=== PATIENT | male | born 1960 | race Caucasian/White ===

== ENCOUNTER 2021-08-16 08:45 | Inpatient (IN) | payer OTHER ==
[~2021-08-16] VITALS: Ht 175.3 cm; Wt 132.2 kg
[2021-08-16] MEDS ORDERED: AZITHROMYCIN 500MG/ 250ML 250 ML IV ONE (09:15)
[2021-08-16] MEDS ORDERED: cefTRIAXone 1GM/50ML D5W 50 ML IV ONE (09:15)
[2021-08-16] MEDS ORDERED: AMIODARONE HCL 150 MG in D5W 5% 100 ML IV ONE (09:15)
[2021-08-16] MEDS ORDERED: AMIODARONE 450mg/250ml AE 250 ML IV SCH (09:30)
[2021-08-16 10:03] LABS: Basophils # (auto) 0 10 ^3/uL (0-0.2); Basophils % (auto) 0.2 % (0.0-2.0); Eosinophils # (auto) 0 10 ^3/uL (0-0.8); Hematocrit 36.3 % (41.0-53.0); Hemoglobin 11.8 g/dL (13.5-17.5); Lymphocytes # (auto) 11.7 10 ^3/uL (0.4-5.4); Lymphocytes % (auto) 47.4 % (10.0-50.0); Mean Corpuscular Hemoglobin 27.2 pg (28.0-32.0); Mean Corpuscular Hgb Conc. 32.5 g/dL (32.0-36.0); Mean Corpuscular Volume 83.7 fL (80.0-100.0); Monocytes # (auto) 0.3 10 ^3/uL (0-1.3); Monocytes % (auto) 1.2 % (0.0-12.0); Neutrophils # (auto) 12.6 10 ^3/uL (1.6-8.6); Neutrophils % (auto) 51.2 % (37.0-80.0); Red Blood Cells 4.34 10^6/uL (4.5-5.90); Red Cell Distribution Width 17.7 % (11.8-14.3); White Blood Cell 24.7 10^3/uL (4.4-10.8)
[2021-08-16] MEDS ORDERED: FUROSEMIDE 40 MG/4 ML VIAL IV ONE (10:15)
[2021-08-16 10:20] LABS: Albumin 2.2 g/dL (3.4-5.0); Calcium 8.6 mg/dL (8.5-10.1); Potassium 4.2 mmol/L (3.5-5.1)
[2021-08-16 10:23] LABS: BUN/Creatinine Ratio 30.7; Bilirubin, Total 1.2 mg/dL (0.2-1.0); Total Protein 6.3 g/dL (6.4-8.2)
[2021-08-16 10:50] LABS: Lactic Acid w/Reflex 2.7 mmol/L (0.4-2.0)
[2021-08-16] MEDS ORDERED: dilTIAZem 25 MG/5 ML VIAL IV ONE ×2 (11:15→22:35)
[2021-08-16] MEDS ORDERED: DIGOXIN 0.25 MG TAB PO ONE (11:30)
[2021-08-16] MEDS ORDERED: MORPHINE SULFATE INJ 2 MG/ml SYRG IV PRN ×2 (12:30→12:45)
[2021-08-16] MEDS ORDERED: DEXTROSE (50%) 50ML SYRG IV PRN (12:30)
[2021-08-16] MEDS ORDERED: NITROGLYCERIN 0.4 MG SL TAB SL PRN (12:30)
[2021-08-16] MEDS ORDERED: MORPHINE SULFATE INJ 2 MG/ml SYRG IV ONE (12:30)
[2021-08-16] MEDS ORDERED: VANCOMYCIN PER PHARMACY 1,000 MG IV SCH (12:45)
[2021-08-16] MEDS ORDERED: BACLOFEN 10 MG TAB PO PRN (12:45)
[2021-08-16] MEDS ORDERED: MAGNESIUM SULFATE 1GM/100ML 100 ML IV ONE (12:45)
[2021-08-16] MEDS: NOREPINEPHRINE 8 MG/250ML KIT 250 ML IV SCH (12:45)
[2021-08-16] MEDS ORDERED: IPRATROPIUM BROM 0.5 MG/2.5ML INH SOL NEB ONE (12:45)
[2021-08-16] MEDS ORDERED: methylPREDNISolone SOD SUCC 125 MG/2 ML VL IV ONE (12:45)
[2021-08-16] MEDS ORDERED: LORazepam 2MG/ML-1ML VIAL IV PRN (12:45)
[2021-08-16] MEDS ORDERED: ACETAMINOPHEN 325 MG TAB PO PRN ×2 (12:45→13:45)
[2021-08-16] MEDS ORDERED: BACLOFEN 10 MG TAB PO ONE (12:45)
[2021-08-16 13:12] LABS: INR 1.27 (0.9-1.15); Partial Thromboplastin Time 28.5 sec (23.6-33.0)
[2021-08-16] MEDS: dilTIAZem 125mg/125ml BAG KIT 125 ML IV SCH (13:42)
[2021-08-16] MEDS ORDERED: PANTOPRAZOLE 40 MG/10 ML VIAL INJ IV ONE (13:45)
[2021-08-16] MEDS ORDERED: DOCUSATE SOD 100 MG CAP PO PRN (13:45)
[2021-08-16] MEDS ORDERED: hydrALAZINE HCL 20 MG/ML VL IV PRN (13:45)
[2021-08-16] MEDS ORDERED: IPRATROPIUM BROM 0.5 MG/2.5ML INH SOL NEB SCH (14:00)
[2021-08-16] MEDS: VANCOMYCIN 1GM/250ML 250 ML IV SCH ×2 (14:02→15:17)
[2021-08-16] MEDS: ACCU-CHEK COMFORT CURVE STRIP VI SCH ×2 (15:26→21:51)
[2021-08-16] MEDS: InsuLIN REG 1unit/0.01ml Soln (100units/ml) SC SCH ×2 (15:32→22:01)
[2021-08-16] MEDS ORDERED: IPRATROPIUM BROM 0.5 MG/2.5ML INH SOL ONE (15:46)
[2021-08-16 16:52] LABS: Magnesium 2.4 mg/dL (1.6-2.6); Phosphorus 2.2 mg/dL (2.5-4.90)
[2021-08-16 16:55] LABS: INR 1.21 (0.9-1.15); Partial Thromboplastin Time 27.4 sec (23.6-33.0)
[2021-08-16] MEDS: RIVAROXABAN 20 MG TAB PO SCH (17:14)
[2021-08-16] MEDS: PIPERACILLIN-TAZOB 3.375GM 100 ML IV SCH ×2 (17:15→20:21)
[2021-08-16] MEDS: methylPREDNISolone SOD SUCC 40 MG/ML VL IV SCH ×2 (17:19→21:50)
[2021-08-16 18:46] LABS: Urine Bacteria FEW /hpf (None Seen); Urine Blood Negative /uL (Negative); Urine Hyaline Cast FEW /lpf (0 - 2); Urine Mucus FEW (None Seen); Urine Specific Gravity 1.026 (1.001-1.035); Urine WBC 3 /hpf (0 - 3)
[2021-08-16] MEDS: IPRATROPIUM BROM 0.5 MG/2.5ML INH SOL NEB PRN (21:01)
[2021-08-16] MEDS: MAGNESIUM OXIDE 400 MG TAB PO SCH (21:50)
[2021-08-16] MEDS: ATORVASTATIN 20 MG TAB PO SCH (21:50)
[2021-08-16] MEDS: ACYCLOVIR 400 MG TAB PO SCH (21:51)
[2021-08-16] MEDS ORDERED: BUDESONIDE (INHALATION) 0.5 MG/2 ML NEB NEB SCH (22:00)
[2021-08-16] MEDS: ONDANSETRON HCL 4 MG/2 ML VIAL IV PRN (22:15)
[2021-08-16] MEDS: MORPHINE SULFATE INJ 2 MG/ml SYRG IV PRN (22:15)
[2021-08-16] MEDS ORDERED: dilTIAZem HCL 50 MG/10 ML VIAL IV ONE (22:36)
[2021-08-17] MEDS: VANCOMYCIN 1GM/250ML 250 ML IV SCH ×3 (00:33→21:03)
[2021-08-17] MEDS ORDERED: PROMETHAZINE HCL 25 MG/ML 1ML IV ONE (01:15)
[2021-08-17] MEDS: IPRATROPIUM BROM 0.5 MG/2.5ML INH SOL NEB PRN ×3 (01:19→19:36)
[2021-08-17 01:36] VITALS: BP 143/77
[2021-08-17] MEDS: LEVOTHYROXINE SODIUM 25 MCG TAB PO SCH (04:56)
[2021-08-17] MEDS: methylPREDNISolone SOD SUCC 40 MG/ML VL IV SCH ×2 (06:28→14:10)
[2021-08-17] MEDS: PIPERACILLIN-TAZOB 3.375GM 100 ML IV SCH ×3 (06:28→17:52)
[2021-08-17] MEDS: InsuLIN REG 1unit/0.01ml Soln (100units/ml) SC SCH ×4 (06:39→23:55)
[2021-08-17] MEDS: ACCU-CHEK COMFORT CURVE STRIP VI SCH ×4 (06:39→23:55)
[2021-08-17 07:43] LABS: INR 1.49 (0.9-1.15); Partial Thromboplastin Time 31.3 sec (23.6-33.0)
[2021-08-17 07:44] LABS: Chloride 98 mmol/L (98-107); Magnesium 2.6 mg/dL (1.6-2.6); Potassium 4.7 mmol/L (3.5-5.1); Sodium 134 mmol/L (136-145)
[2021-08-17 07:55] LABS: Alanine Aminotransferase 20 U/L (16-61); Albumin 1.8 g/dL (3.4-5.0); Alkaline Phosphatase 95 U/L (45-117); Anion Gap 8 (5-15); Aspartate Aminotransferase 16 U/L (15-37); BUN/Creatinine Ratio 48.8; Bilirubin, Total 0.8 mg/dL (0.2-1.0); Blood Urea Nitrogen 62 mg/dL (7-18); Calcium 7.9 mg/dL (8.5-10.1); Carbon Dioxide 28 mmol/L (21-32); Cholesterol 113 mg/dL (< 200); Creatine Kinase IFCC 28 U/L (39-308); GFR African American 74 mL/min; GFR Non-African American 61 mL/min; HDL Cholesterol 13 mg/dL (40-59); LDL Cholesterol 81 mg/dL (< 100); Lipase 58 U/L (73-393); Phosphorus 4.2 mg/dL (2.5-4.90); Total Protein 5.6 g/dL (6.4-8.2); Triglycerides 126 mg/dL (< 150); Uric Acid 8.8 mg/dL (3.5-7.2)
[2021-08-17 07:59] LABS: Basophils # (auto) 0.1 10 ^3/uL (0-0.2); Basophils % (auto) 0.4 % (0.0-2.0); Eosinophils # (auto) 0 10 ^3/uL (0-0.8); Hematocrit 28.3 % (41.0-53.0); Hemoglobin 9.2 g/dL (13.5-17.5); Lymphocytes # (auto) 8.5 10 ^3/uL (0.4-5.4); Lymphocytes % (auto) 54.6 % (10.0-50.0); Mean Corpuscular Hemoglobin 27.9 pg (28.0-32.0); Mean Corpuscular Hgb Conc. 32.5 g/dL (32.0-36.0); Mean Corpuscular Volume 85.6 fL (80.0-100.0); Monocytes # (auto) 0.1 10 ^3/uL (0-1.3); Monocytes % (auto) 0.7 % (0.0-12.0); Neutrophils # (auto) 6.9 10 ^3/uL (1.6-8.6); Neutrophils % (auto) 44.3 % (37.0-80.0); Red Cell Distribution Width 17.4 % (11.8-14.3); White Blood Cell 15.5 10^3/uL (4.4-10.8)
[2021-08-17 08:02] LABS: CRP High Sensitivity > 19 mg/dL (< 0.3)
[2021-08-17 08:05] LABS: Glucose 563 mg/dL (74-106)
[2021-08-17 09:12] LABS: Urine Bacteria NONE SEEN /hpf (None Seen); Urine Blood 3+ /uL (Negative); Urine Specific Gravity 1.024 (1.001-1.035); Urine WBC 20 /hpf (0 - 3)
[2021-08-17 09:14] LABS: Alcohol, Urine < 3.0 mg/dL (0-10); Amphetamine Screen, Urine NEGATIVE (NEGATIVE); Barbiturate Scree,Urine NEGATIVE (NEGATIVE); Benzodiazephine Screen, Urine NEGATIVE (NEGATIVE); Cannabinoid Screen, Urine NEGATIVE (NEGATIVE); Cocaine Screen, Urine NEGATIVE (NEGATIVE); Opiate Scree,Urine NEGATIVE (NEGATIVE); Phencyclidine Screen, Urine NEGATIVE (NEGATIVE); Protein, Urine 30.9 mg/dL (0.0-11.9)
[2021-08-17] MEDS ORDERED: InsuLIN REG 1unit/0.01ml Soln (100units/ml) IV ONE (09:45)
[2021-08-17] MEDS: ACYCLOVIR 400 MG TAB PO SCH ×2 (09:51→23:54)
[2021-08-17] MEDS: dilTIAZem 120MG ER CAP PO SCH (09:51)
[2021-08-17] MEDS: LORATADINE 10 MG TAB PO SCH (09:51)
[2021-08-17] MEDS: MAGNESIUM OXIDE 400 MG TAB PO SCH ×2 (09:51→23:54)
[2021-08-17] MEDS ORDERED: PANTOPRAZOLE 40 MG/10 ML VIAL INJ IV SCH ×2 (10:00)
[2021-08-17] MEDS: PANTOPRAZOLE 40mg/50ML NS AE 50 ML IV SCH ×3 (11:54→23:17)
[2021-08-17] MEDS: NOREPINEPHRINE 8 MG/250ML KIT 250 ML IV SCH (12:45)
[2021-08-17] MEDS: dilTIAZem 125mg/125ml BAG KIT 125 ML IV SCH (12:54)
[2021-08-17] MEDS: ONDANSETRON HCL 4 MG/2 ML VIAL IV PRN (15:27)
[2021-08-17] MEDS: MORPHINE SULFATE INJ 2 MG/ml SYRG IV PRN (15:28)
[2021-08-17] MEDS: RIVAROXABAN 20 MG TAB PO SCH (17:31)
[2021-08-17] MEDS: LEVALBUTEROL HCL 1.25 MG/3 ML NEB NEB SCH (19:36)
[2021-08-17 22:56] LABS: Hematocrit 26.5 % (41.0-53.0); Hemoglobin 8.7 g/dL (13.5-17.5)
[2021-08-17] MEDS ORDERED: TEMAZEPAM 15 MG CAP PO ONE (23:45)
[2021-08-17] MEDS: ATORVASTATIN 20 MG TAB PO SCH (23:54)
[2021-08-17] MEDS: INSULIN LANTUS (GLARGINE) 1 /0.01ml (100units/ml) SC SCH (23:56)
[2021-08-18] MEDS: LEVALBUTEROL HCL 1.25 MG/3 ML NEB NEB SCH ×4 (00:35→20:19)
[2021-08-18] MEDS: PANTOPRAZOLE 40mg/50ML NS AE 50 ML IV SCH ×2 (01:25→09:42)
[2021-08-18] MEDS: PIPERACILLIN-TAZOB 3.375GM 100 ML IV SCH ×2 (01:33→06:43)
[2021-08-18] MEDS: VANCOMYCIN 1GM/250ML 250 ML IV SCH ×3 (05:25→21:33)
[2021-08-18] MEDS: LEVOTHYROXINE SODIUM 25 MCG TAB PO SCH (06:47)
[2021-08-18] MEDS: INSULIN LANTUS (GLARGINE) 1 /0.01ml (100units/ml) SC SCH ×2 (06:49→23:52)
[2021-08-18] MEDS: INSULIN LISPRO (HUMAN) 100 UNITS/ML ML SC SCH ×2 (06:49→11:47)
[2021-08-18] MEDS: InsuLIN REG 1unit/0.01ml Soln (100units/ml) SC SCH ×4 (06:49→23:09)
[2021-08-18] MEDS: ACCU-CHEK COMFORT CURVE STRIP VI SCH ×4 (06:50→23:31)
[2021-08-18] MEDS: IPRATROPIUM BROM 0.5 MG/2.5ML INH SOL NEB PRN ×3 (07:28→20:20)
[2021-08-18 10:43] LABS: Hematocrit 25.8 % (41.0-53.0); Hemoglobin 8.5 g/dL (13.5-17.5); Mean Corpuscular Hemoglobin 27.9 pg (28.0-32.0); Mean Corpuscular Hgb Conc. 32.8 g/dL (32.0-36.0); Mean Corpuscular Volume 85.2 fL (80.0-100.0); Red Blood Cells 3.03 10^6/uL (4.5-5.90); Red Cell Distribution Width 17.4 % (11.8-14.3); White Blood Cell 10.8 10^3/uL (4.4-10.8)
[2021-08-18 10:54] LABS: Basophils % (manual) 0 (0.0-2.0); Blast Cells 0; Eosinophils % (manual) 0 (0-7); Metamyelocytes % 0; Myelocytes % 0; Promyelocytes % 0; Reactive Lymphocytes 0
[2021-08-18 10:59] LABS: BUN/Creatinine Ratio 49.4; Calcium 8.2 mg/dL (8.5-10.1); Magnesium 2.9 mg/dL (1.6-2.6); Phosphorus 2.5 mg/dL (2.5-4.90); Potassium 4.1 mmol/L (3.5-5.1)
[2021-08-18] MEDS: LORATADINE 10 MG TAB PO SCH (11:01)
[2021-08-18] MEDS: MAGNESIUM OXIDE 400 MG TAB PO SCH ×2 (11:02→23:30)
[2021-08-18] MEDS: ACYCLOVIR 400 MG TAB PO SCH ×2 (11:02→23:31)
[2021-08-18] MEDS: dilTIAZem 120MG ER CAP PO SCH (11:04)
[2021-08-18 11:44] LABS: Band Neutrophils % (manual) 1; Lymphocytes % (manual) 43 (10.0-50.0); Monocytes % (manual) 5 (0-12)
[2021-08-18] MEDS: NOREPINEPHRINE 8 MG/250ML KIT 250 ML IV SCH (13:24)
[2021-08-18] MEDS: dilTIAZem 125mg/125ml BAG KIT 125 ML IV SCH (13:24)
[2021-08-18 17:00] VITALS: BP 117/49
[2021-08-18] MEDS: CEFEPIME 2 GM in SODIUM CHL 0.9% 50 ML IV SCH ×2 (17:39→23:30)
[2021-08-18] MEDS ORDERED: PANTOPRAZOLE 40 MG/10 ML VIAL INJ IV SCH (22:00)
[2021-08-18 22:09] VITALS: BP 104/47
[2021-08-18 22:25] LABS: Hematocrit 27.7 % (41.0-53.0); Hemoglobin 8.7 g/dL (13.5-17.5)
[2021-08-18] MEDS: ATORVASTATIN 20 MG TAB PO SCH (23:30)
[2021-08-18] MEDS: PANTOPRAZOLE 40 MG TAB PO SCH (23:31)
[2021-08-19] MEDS: IPRATROPIUM BROM 0.5 MG/2.5ML INH SOL NEB PRN ×2 (00:42→19:14)
[2021-08-19] MEDS: LEVALBUTEROL HCL 1.25 MG/3 ML NEB NEB SCH ×4 (00:42→19:13)
[2021-08-19 05:00] VITALS: BP 101/71
[2021-08-19] MEDS: VANCOMYCIN 1GM/250ML 250 ML IV SCH ×2 (05:00→14:43)
[2021-08-19] MEDS: CEFEPIME 2 GM in SODIUM CHL 0.9% 50 ML IV SCH ×3 (06:02→22:39)
[2021-08-19] MEDS: INSULIN LISPRO (HUMAN) 100 UNITS/ML ML SC SCH ×3 (06:04→18:21)
[2021-08-19] MEDS: INSULIN LANTUS (GLARGINE) 1 /0.01ml (100units/ml) SC SCH ×2 (06:05→22:41)
[2021-08-19] MEDS: InsuLIN REG 1unit/0.01ml Soln (100units/ml) SC SCH ×3 (06:06→18:13)
[2021-08-19] MEDS: LEVOTHYROXINE SODIUM 25 MCG TAB PO SCH (06:07)
[2021-08-19] MEDS: ACCU-CHEK COMFORT CURVE STRIP VI SCH ×4 (06:07→22:41)
[2021-08-19 06:13] LABS: Hemoglobin 8.3 g/dL (13.5-17.5); Red Blood Cells 3.03 10^6/uL (4.5-5.90)
[2021-08-19 06:17] LABS: Hematocrit 25.5 % (41.0-53.0); Mean Corpuscular Hemoglobin 27.6 pg (28.0-32.0); Mean Corpuscular Hgb Conc. 32.7 g/dL (32.0-36.0); Mean Corpuscular Volume 84.3 fL (80.0-100.0); Red Cell Distribution Width 17.1 % (11.8-14.3); White Blood Cell 10.6 10^3/uL (4.4-10.8)
[2021-08-19 06:18] LABS: Albumin 1.8 g/dL (3.4-5.0); Calcium 7.8 mg/dL (8.5-10.1); Potassium 4.7 mmol/L (3.5-5.1)
[2021-08-19 06:20] LABS: Band Neutrophils % (manual) 0; Basophils % (manual) 0 (0.0-2.0); Blast Cells 0; Eosinophils % (manual) 0 (0-7); Metamyelocytes % 0; Myelocytes % 0; Promyelocytes % 0; Reactive Lymphocytes 0
[2021-08-19 06:24] LABS: BUN/Creatinine Ratio 47.2; Bilirubin, Total 0.4 mg/dL (0.2-1.0); Magnesium 2.7 mg/dL (1.6-2.6); Phosphorus 1.6 mg/dL (2.5-4.90); Total Protein 4.9 g/dL (6.4-8.2)
[2021-08-19] MEDS: HYDROcodone-ACET 5/325MG TAB PO PRN (06:37)
[2021-08-19 06:40] LABS: Lymphocytes % (manual) 39 (10.0-50.0); Monocytes % (manual) 3 (0-12)
[2021-08-19 08:00] VITALS: BP 104/56
[2021-08-19 10:19] LABS: Hematocrit 25.6 % (41.0-53.0); Hemoglobin 8.5 g/dL (13.5-17.5)
[2021-08-19] MEDS: MAGNESIUM OXIDE 400 MG TAB PO SCH ×2 (10:57→22:40)
[2021-08-19] MEDS: PANTOPRAZOLE 40 MG TAB PO SCH ×2 (10:57→22:40)
[2021-08-19] MEDS: ACYCLOVIR 400 MG TAB PO SCH ×2 (10:57→22:40)
[2021-08-19] MEDS: LORATADINE 10 MG TAB PO SCH (10:57)
[2021-08-19] MEDS: dilTIAZem 120MG ER CAP PO SCH (10:58)
[2021-08-19 12:00] VITALS: BP 108/54
[2021-08-19 16:00] VITALS: BP 100/53
[2021-08-19] MEDS ORDERED: SODIUM PHOSPHATES 40 MEQ in D5W 5% 250 ML IV ONE (16:00)
[2021-08-19 21:50] VITALS: BP 107/50
[2021-08-19 21:59] LABS: Hematocrit 25.3 % (41.0-53.0); Hemoglobin 8.5 g/dL (13.5-17.5)
[2021-08-19] MEDS: ATORVASTATIN 20 MG TAB PO SCH (22:39)
[2021-08-19] MEDS: MORPHINE SULFATE INJ 2 MG/ml SYRG IV PRN (22:44)
[2021-08-20] MEDS: IPRATROPIUM BROM 0.5 MG/2.5ML INH SOL NEB PRN (00:34)
[2021-08-20] MEDS: LEVALBUTEROL HCL 1.25 MG/3 ML NEB NEB SCH ×3 (00:34→06:29)
[2021-08-20] MEDS: VANCOMYCIN 1GM/250ML 250 ML IV SCH ×3 (00:53→16:34)
[2021-08-20] MEDS: InsuLIN REG 1unit/0.01ml Soln (100units/ml) SC SCH ×5 (00:55→22:29)
[2021-08-20 05:11] VITALS: BP 114/52
[2021-08-20] MEDS: LEVOTHYROXINE SODIUM 25 MCG TAB PO SCH (06:51)
[2021-08-20] MEDS: ACCU-CHEK COMFORT CURVE STRIP VI SCH ×4 (06:52→22:21)
[2021-08-20] MEDS: INSULIN LANTUS (GLARGINE) 1 /0.01ml (100units/ml) SC SCH ×2 (06:52→22:30)
[2021-08-20] MEDS: INSULIN LISPRO (HUMAN) 100 UNITS/ML ML SC SCH ×3 (06:53→16:34)
[2021-08-20 08:23] VITALS: BP 103/55
[2021-08-20] MEDS: PANTOPRAZOLE 40 MG TAB PO SCH ×2 (09:11→22:20)
[2021-08-20] MEDS: CEFEPIME 2 GM in SODIUM CHL 0.9% 50 ML IV SCH ×2 (09:11→17:15)
[2021-08-20] MEDS: MAGNESIUM OXIDE 400 MG TAB PO SCH ×2 (09:11→22:19)
[2021-08-20] MEDS: LORATADINE 10 MG TAB PO SCH (09:11)
[2021-08-20] MEDS: ACYCLOVIR 400 MG TAB PO SCH ×2 (09:11→22:20)
[2021-08-20] MEDS: dilTIAZem 120MG ER CAP PO SCH (09:12)
[2021-08-20 10:50] LABS: Hematocrit 31.7 % (41.0-53.0); Hemoglobin 10.3 g/dL (13.5-17.5)
[2021-08-20] MEDS ORDERED: LIDOCAINE VISCOUS 2% 15ML UD ONE (12:19)
[2021-08-20] MEDS ORDERED: SODIUM CHLORIDE LOCK 10 ML ONE (12:19)
[2021-08-20] MEDS ORDERED: diphenhdrAMINE HCL 50 MG/1 ML VL ONE (12:19)
[2021-08-20] MEDS ORDERED: fentaNYL CITRATE 100 MCG/2 ML VL ONE (12:19)
[2021-08-20] MEDS ORDERED: MIDAZOLAM HCL 5 MG/ML-1ML VIAL ONE (12:19)
[2021-08-20 12:57] VITALS: BP 106/56
[2021-08-20] MEDS ORDERED: PROPOFOL 10 MG/ML 20 ML IV ONE (15:08)
[2021-08-20] MEDS ORDERED: LIDOCAINE 2% (LOCAL ANESTH.) PF 5ml SDV ONE (15:08)
[2021-08-20] MEDS: SUCRALFATE 1 GM/10 ML ORAL SUSP PO SCH ×2 (16:34→22:19)
[2021-08-20] MEDS: NYSTATIN (MOUTH-THROAT) 500,000 UNITS/5 ML SUSP MT SCH ×2 (16:35→22:19)
[2021-08-20 17:00] VITALS: BP 128/64
[2021-08-20 22:00] VITALS: BP 127/68
[2021-08-20] MEDS: ATORVASTATIN 20 MG TAB PO SCH (22:19)
[2021-08-20] MEDS: LORazepam 0.5 MG TAB PO PRN (22:21)
[2021-08-20] MEDS ORDERED: dilTIAZem 25 MG/5 ML VIAL IV ONE (23:00)
[2021-08-21] MEDS: VANCOMYCIN 1GM/250ML 250 ML IV SCH ×3 (00:05→16:55)
[2021-08-21] MEDS ORDERED: dilTIAZem 25 MG/5 ML VIAL IV ONE (01:00)
[2021-08-21] MEDS ORDERED: DIGOXIN (250MCG/ML) 2 ML AMPULE IV ONE ×2 (01:15→01:25)
[2021-08-21] MEDS: CEFEPIME 2 GM in SODIUM CHL 0.9% 50 ML IV SCH ×3 (01:15→17:10)
[2021-08-21] MEDS ORDERED: METOPROLOL SUCCINATE XL 50 MG TAB PO ONE (01:15)
[2021-08-21 05:00] VITALS: BP 133/51
[2021-08-21] MEDS: NYSTATIN (MOUTH-THROAT) 500,000 UNITS/5 ML SUSP MT SCH ×4 (06:17→21:30)
[2021-08-21] MEDS: SUCRALFATE 1 GM/10 ML ORAL SUSP PO SCH ×4 (06:17→21:30)
[2021-08-21] MEDS: LEVOTHYROXINE SODIUM 25 MCG TAB PO SCH (06:17)
[2021-08-21] MEDS: InsuLIN REG 1unit/0.01ml Soln (100units/ml) SC SCH ×4 (06:25→21:54)
[2021-08-21] MEDS: INSULIN LISPRO (HUMAN) 100 UNITS/ML ML SC SCH ×3 (06:25→16:54)
[2021-08-21] MEDS: INSULIN LANTUS (GLARGINE) 1 /0.01ml (100units/ml) SC SCH ×2 (06:26→21:53)
[2021-08-21] MEDS: ACCU-CHEK COMFORT CURVE STRIP VI SCH ×4 (06:27→22:00)
[2021-08-21 09:00] VITALS: BP 116/64
[2021-08-21 11:04] LABS: Basophils # (auto) 0.1 10 ^3/uL (0-0.2); Basophils % (auto) 0.3 % (0.0-2.0); Eosinophils # (auto) 0.2 10 ^3/uL (0-0.8); Eosinophils % (auto) 0.8 % (0.0-7.0); Hematocrit 31.1 % (41.0-53.0); Lymphocytes % (auto) 42.8 % (10.0-50.0); Mean Corpuscular Hemoglobin 27.4 pg (28.0-32.0); Mean Corpuscular Hgb Conc. 32.2 g/dL (32.0-36.0); Mean Corpuscular Volume 85.2 fL (80.0-100.0); Monocytes # (auto) 0.2 10 ^3/uL (0-1.3); Monocytes % (auto) 0.9 % (0.0-12.0); Neutrophils # (auto) 11.6 10 ^3/uL (1.6-8.6); Neutrophils % (auto) 55.2 % (37.0-80.0); Nucleated Red Blood Cells % 0.1 %; Red Blood Cells 3.65 10^6/uL (4.5-5.90); Red Cell Distribution Width 17.4 % (11.8-14.3); White Blood Cell 21.1 10^3/uL (4.4-10.8)
[2021-08-21 11:11] LABS: Albumin 1.9 g/dL (3.4-5.0); Magnesium 2.2 mg/dL (1.6-2.6); Potassium 4.3 mmol/L (3.5-5.1)
[2021-08-21 11:15] LABS: Bilirubin, Total 0.7 mg/dL (0.2-1.0); Phosphorus 2.5 mg/dL (2.5-4.90)
[2021-08-21] MEDS: MAGNESIUM OXIDE 400 MG TAB PO SCH ×2 (12:12→21:31)
[2021-08-21] MEDS: LORATADINE 10 MG TAB PO SCH (12:12)
[2021-08-21] MEDS: PANTOPRAZOLE 40 MG TAB PO SCH ×2 (12:13→21:31)
[2021-08-21] MEDS: METOPROLOL SUCCINATE XL 50 MG TAB PO SCH (12:13)
[2021-08-21] MEDS: ACYCLOVIR 400 MG TAB PO SCH ×2 (12:14→21:30)
[2021-08-21 13:00] VITALS: BP 115/68
[2021-08-21] MEDS ORDERED: SUCR1SUS10 PO (14:51)
[2021-08-21] MEDS ORDERED: LEV25T PO (14:51)
[2021-08-21] MEDS ORDERED: PANT40T PO (14:51)
[2021-08-21] MEDS ORDERED: METO-6 PO (14:51)
[2021-08-21] MEDS ORDERED: ACYC-163 PO (14:51)
[2021-08-21] MEDS ORDERED: NYS5LQ MT (14:51)
[2021-08-21] MEDS ORDERED: DOXY-286 PO (14:51)
[2021-08-21 15:32] LABS: Basophils # (auto) 0 10 ^3/uL (0-0.2); Basophils % (auto) 0.1 % (0.0-2.0); Eosinophils # (auto) 0.1 10 ^3/uL (0-0.8); Eosinophils % (auto) 0.8 % (0.0-7.0); Hematocrit 28.2 % (41.0-53.0); Hemoglobin 9.3 g/dL (13.5-17.5); Lymphocytes # (auto) 6.1 10 ^3/uL (0.4-5.4); Lymphocytes % (auto) 38.3 % (10.0-50.0); Mean Corpuscular Hemoglobin 27.8 pg (28.0-32.0); Mean Corpuscular Hgb Conc. 33.1 g/dL (32.0-36.0); Mean Corpuscular Volume 83.9 fL (80.0-100.0); Monocytes # (auto) 0.2 10 ^3/uL (0-1.3); Neutrophils # (auto) 9.5 10 ^3/uL (1.6-8.6); Neutrophils % (auto) 59.8 % (37.0-80.0); Nucleated Red Blood Cells % 0.1 %; Red Blood Cells 3.36 10^6/uL (4.5-5.90); Red Cell Distribution Width 17.4 % (11.8-14.3); White Blood Cell 15.9 10^3/uL (4.4-10.8)
[2021-08-21 17:00] VITALS: BP 127/71
[2021-08-21] MEDS: HYDROcodone-ACET 5/325MG TAB PO PRN (17:16)
[2021-08-21 20:00] VITALS: BP 93/54
[2021-08-21] MEDS: ATORVASTATIN 20 MG TAB PO SCH (21:30)
[2021-08-21] MEDS: LORazepam 0.5 MG TAB PO PRN (21:45)
[2021-08-21 22:00] VITALS: BP 93/42
[2021-08-22] MEDS: VANCOMYCIN 1GM/250ML 250 ML IV SCH ×2 (00:10→09:00)
[2021-08-22] MEDS: CEFEPIME 2 GM in SODIUM CHL 0.9% 50 ML IV SCH ×2 (01:46→09:15)
[2021-08-22 05:00] VITALS: BP 132/55
[2021-08-22] MEDS: SUCRALFATE 1 GM/10 ML ORAL SUSP PO SCH ×2 (06:00→11:38)
[2021-08-22] MEDS: NYSTATIN (MOUTH-THROAT) 500,000 UNITS/5 ML SUSP MT SCH ×2 (06:00→12:01)
[2021-08-22] MEDS: LEVOTHYROXINE SODIUM 25 MCG TAB PO SCH (06:01)
[2021-08-22] MEDS: INSULIN LISPRO (HUMAN) 100 UNITS/ML ML SC SCH ×2 (06:26→12:01)
[2021-08-22] MEDS: ACCU-CHEK COMFORT CURVE STRIP VI SCH ×2 (06:28→11:38)
[2021-08-22] MEDS: InsuLIN REG 1unit/0.01ml Soln (100units/ml) SC SCH ×2 (06:28→12:00)
[2021-08-22] MEDS: INSULIN LANTUS (GLARGINE) 1 /0.01ml (100units/ml) SC SCH (06:29)
[2021-08-22 08:00] VITALS: BP 116/64
[2021-08-22] MEDS: PANTOPRAZOLE 40 MG TAB PO SCH (08:58)
[2021-08-22] MEDS: LORATADINE 10 MG TAB PO SCH (08:58)
[2021-08-22] MEDS: MAGNESIUM OXIDE 400 MG TAB PO SCH (08:58)
[2021-08-22] MEDS: METOPROLOL SUCCINATE XL 50 MG TAB PO SCH (08:59)
[2021-08-22] MEDS: ACYCLOVIR 400 MG TAB PO SCH (08:59)
[2021-08-22 09:00] VITALS: BP 118/79
[2021-08-22 13:00] VITALS: BP 131/58
[2021-08-22 13:56] LABS: Lactic Acid w/Reflex 2.9 mmol/L (0.4-2.0)
[2021-08-22 14:03] LABS: Basophils # (auto) 0.1 10 ^3/uL (0-0.2); Basophils % (auto) 0.3 % (0.0-2.0); Eosinophils # (auto) 0.2 10 ^3/uL (0-0.8); Lymphocytes # (auto) 7.5 10 ^3/uL (0.4-5.4); Lymphocytes % (auto) 41.7 % (10.0-50.0); Mean Corpuscular Hemoglobin 27.5 pg (28.0-32.0); Mean Corpuscular Hgb Conc. 32.3 g/dL (32.0-36.0); Mean Corpuscular Volume 85.2 fL (80.0-100.0); Monocytes # (auto) 0.2 10 ^3/uL (0-1.3); Nucleated Red Blood Cells % 0.3 %; Red Blood Cells 3.63 10^6/uL (4.5-5.90); Red Cell Distribution Width 18.1 % (11.8-14.3); White Blood Cell 17.9 10^3/uL (4.4-10.8)
[2021-08-22 15:26] VITALS: BP 118/79
== END 2021-08-22 16:43 | disposition home or self-care (01) | DRG 871 ==
LOC: EDBD 08:45 → ER 08:45 → OVERFLOW 12:32 → TELE-EAST 08-18 15:22
PROVIDERS: ADMIT Hospitalist; ATTEND Internal Medicine
PROC: 0DB68ZX Excision of Stomach, Via Natural or Artificial Opening Endoscopic, Diagnostic (ICD-10-PCS; 2021-08-20)
PROC: 0DB58ZX Excision of Esophagus, Via Natural or Artificial Opening Endoscopic, Diagnostic (ICD-10-PCS; 2021-08-20)
PROC: 0DB98ZX Excision of Duodenum, Via Natural or Artificial Opening Endoscopic, Diagnostic (ICD-10-PCS; principal; 2021-08-20 14:49)
DX: A41.9 Sepsis, unspecified organism (principal); J69.0 Pneumonitis due to inhalation of food and vomit; E43 Unspecified severe protein-calorie malnutrition; K22.11 Ulcer of esophagus with bleeding; J96.02 Acute respiratory failure with hypercapnia; K29.91 Gastroduodenitis, unspecified, with bleeding; E66.2 Morbid (severe) obesity with alveolar hypoventilation; J44.1 Chronic obstructive pulmonary disease with (acute) exacerbation; J44.0 Chronic obstructive pulmonary disease with (acute) lower respiratory infection; B37.81 Candidal esophagitis; R65.20 Severe sepsis without septic shock; I11.0 Hypertensive heart disease with heart failure; L40.9 Psoriasis, unspecified; I48.91 Unspecified atrial fibrillation; I50.9 Heart failure, unspecified; E11.65 Type 2 diabetes mellitus with hyperglycemia; B02.9 Zoster without complications; R59.1 Generalized enlarged lymph nodes; E78.5 Hyperlipidemia, unspecified; Z20.822 Contact with and (suspected) exposure to COVID-19; D64.9 Anemia, unspecified; E03.9 Hypothyroidism, unspecified; K44.9 Diaphragmatic hernia without obstruction or gangrene; Z85.6 Personal history of leukemia; Z79.4 Long term (current) use of insulin; Z86.19 Personal history of other infectious and parasitic diseases
CPT/HCPCS: 36415; 71045; 74176; 80048; 80053; 80061; 80069; 80202; 80307; 81001; 82270; 82550; 82553; 82728; 82962; 83036; 83605; 83615; 83690; 83735; 83880; 84100; 84156; 84443; 84484; 84550; 85007; 85014; 85018; 85025; 85027; 85379; 85610; 85652; 85730; 86141; 87040; 87086; 93005; 93306; 93970; 94640; 96365; 96366; 96368; 99291; C9113; G0378; J0696; J1815; J2001; J2250; J2405; J2543; J2704; J7060